=== PATIENT | female | born 1930 | race Caucasian/White ===

== ENCOUNTER 2017-01-13 13:44 | Emergency (ER) | payer MEDICARE ==
[~2017-01-13] VITALS: Ht 162.6 cm; Wt 67.8 kg
[~2017-01-13 13:44] MED LIST: HYDR200T4 PO; METO-277 PO; TRAMADOL PO
[2017-01-13 13:48] VITALS: Ht 162.6 cm; Wt 67.8 kg
--- OUTSIDE RECORDS SUMMARY | 2017-01-13 13:48 | XMS REPORT | Continuity of Care Document ---
Author Author [facility] Organization [facility] Address Unknown Phone Unavailable Support Name Relationship Address Phone Josi KAUR MD Caregiver [address] [place] [address] Unavailable YAYA DEAN MD Caregiver [address] [place] [address] Unavailable MANFRED CARTAGENA Next Of Kin [address] [place], [place] [id number] Insurance Providers Guarantor Whitney Cartagena Address [address] [place] [address] Email DENIED/NO TO PORT Payer Medicare Policy Number [id number] Subscriber's Name Whitney Cartagena Relationship 18 Self Payer [facility] Policy Number [id number] Subscriber's Name Whitney Cartagena Relationship 18 Self Group Number [id number] Directives Directive Response Recorded Date/Time Advanced Directives Type Unable to Obtain 09/22/16 8:52am Chief Complaint and Reason for Visit Chief Complaint Fall Reason for Visit Lumbar contusion Fall Problems Active Problems Medical Problem Onset Date Status RLL pneumonia Unknown Acute Past Problems Medical Problem Onset Date Fall Unknown Lumbar contusion Unknown Medications Current Home Medications Medication Dose Units Route Directions Days Qty Instructions Start Date Hydroxychloroquine Sulfate 200 Mg Tablet 200 Mg Oral Twice A Day as needed for Prn Orders 09/22/16 Metoprolol Succinate 50 Mg Tab.er.24h 50 Mg Oral Daily 09/22/16 Tramadol Susp 5 Mg Oral As Needed 09/22/16 Social History Social History Problem Response Recorded Date/Time Onset Date Status Hx Substance Use No 09/22/2016 8:52am Not Applicable Not Applicable Hx Alcohol Use Y DAILY 09/22/2016 8:52am Not Applicable Not Applicable Query Response Start Date Stop Date Smoking Status Unknown if ever smoked Hospital Discharge Instructions No hospital discharge instructions. Plan of Care Discharge Date 09/22/16 1:03pm Disposition 01 DISCHARGED HOME, SELF-CARE Condition at Discharge Improved Instructions/Education Provided How to Prevent Falls Prescriptions See Medication Section Referrals Josi KAUR MD Address: [place] [address] Care Plan and Goals Physician Care Plan Problem: Lumbar contusion from fall Goal: Follow up with primary care provider Instructions: Take medications and follow care plan as discussed/written Functional Status No functional status results. Allergies, Adverse Reactions, Alerts No known allergies. Immunizations Query Response on File Recorded Date/Time Hx Influenza Vaccination Y 201304/26/15 10:30pm Hx Pneumococcal Vaccination No 04/26/15 10:30pm Hx Influenza Vaccination Y 201304/26/15 10:30pm Vital Signs Acute Vital Signs Vital Response Date/Time Temperature (Fahrenheit) 96.7 deg F (96.8 - 99.1) 09/22/2016 8:52am Temperature (Calculated Celsius) 35.09107 degrees C (36.0 - 37.3) 09/22/2016 8:52am Pulse Rate (adult) 112 bpm (60 - 100) 09/22/2016 1:00pm Respiratory Rate 16 breaths/min (10 - 20) 09/22/2016 1:00pm O2 Sat by Pulse Oximetry 97 % (90 - 100) 09/22/2016 1:00pm Blood Pressure 124/88 mm Hg 09/22/2016 1:00pm Height (Feet) 5 feet 09/22/2016 8:52am Height (Inches) 3.00 inches 09/22/2016 8:52am Weight (Kilograms) 65.100 kg 09/22/2016 8:52am Body Mass Index (BMI) 25.0 09/22/2016 8:52am Results Laboratory Results Test Name Result Units Flags Reference Collection Date/Time Result Date/ Time Comments White Blood Count 7.8 T/MM3 4.5-11.0 09/22/2016 9:20am 09/22/2016 9: 26am Red Blood Count 4.41 M/MM3 4.00-5.20 09/22/2016 9:20am 09/22/2016 9: 26am Hemoglobin 13.9 GM/DL 12-16 09/22/2016 9:20am 09/22/2016 9:26am Hematocrit 42.9 % 36-46 09/22/2016 9:20am 09/22/2016 9:26am Mean Corpuscular Volume 97.3 UM3 80-100 09/22/2016 9:2009/22/2016 9: 26am Mean Corpuscular Hemoglobin 31.5 UUG 26-34 09/22/2016 9:202015 9:26am Mean Corpuscular Hemoglobin Concent 32.4 GM/DL 31-37 09/22/2016 9:2009/22/2016 9:26am RDW Standard Deviation 48.7 FL 36.9-50.2 09/22/2016 9:2009/22/2016 9 :26am Platelet Count 269 T/MM3 130-400 09/22/2016 9:2009/22/2016 9:26am Mean Platelet Volume 11.3 UM3 9.4-12.4 09/22/2016 9:am 09/22/2016 9: 26am Neutrophils (%) (Auto) 73.9 % H 33-66 09/22/2016 9:09/22/2016 9: 26am Lymphocytes (%) (Auto) 18.3 % L 23-45 09/22/2016 9:09/22/2016 9: 26am Monocytes (%) (Auto) 7.2 % 0-9.0 09/22/2016 9:2009/22/2016 9:26am Eosinophils (%) (Auto) 0.0 % 0-4 09/22/2016 9:09/22/2016 9:26am Basophils (%) (Auto) 0.3 % 0-2 09/22/2016 9:2009/22/2016 9:26am Immature Granulocyte % (Auto) 0.3 % 0.0-0.5 09/22/2016 9:202015 9:26am Absolute Neutrophils (auto) 5.7 T/MM3 1.8-7.7 09/22/2016 9:20am 2015 9:26am Absolute Lymphocytes (auto) 1.4 T/MM3 1-4.8 09/22/2016 9:20am 2015 9:26am Absolute Monocytes (auto) 0.6 T/MM3 0-0.8 09/22/2016 9:20am 09/22/2016 9:26am Absolute Eosinophils (auto) 0.0 T/MM3 0-0.5 09/22/2016 9:20am 2015 9:26am Absolute Basophils (auto) 0.0 T/MM3 0-0.2 09/22/2016 9:20am 09/22/2016 9:26am Absolute Immature Granulocyte (auto 0.02 T/MM3 0.00-0.03 09/22/2016 9: 20am 09/22/2016 9:26am Icterus Index < 2 0-7 09/22/2016 10:30am 09/22/2016 10:44am Chemistry Specimen Hemolysis 98 H 0-25 09/22/2016 10:30am 09/22/2016 10:44am 71-285: Specimen Exhibited Moderate Hemolysis - can falsely elevate K (Potassium), Troponin I, CA 19-9, PTH, CSF Glucose, Urine Protein, and can falsely decrease Phenytoin. Turbidity 48 H 0-20 09/22/2016 10:30am 09/22/2016 10:44am 0-21: Turbidity not present. 22-999: Turbidity present - Gross turbidity can falsely decrease Lipase and Triglycerides. Sodium Level 142 MEQ/L 134-144 09/22/2016 10:30am 09/22/2016 12:02pm Potassium Level 4.7 MEQ/L 3.6-5 09/22/2016 10:30am 09/22/2016 12:02pm Chloride Level 118 MEQ/L H 98-107 09/22/2016 10:30am 09/22/2016 11:25am Carbon Dioxide Level 14 MEQ/L L 22-30 09/22/2016 10:30am 09/22/2016 11: 25am Anion Gap 10 MEQ/L 5-15 09/22/2016 10:30am 09/22/2016 12:02pm Blood Urea Nitrogen 15.0 MG/DL 7-17 09/22/2016 10:30am 09/22/2016 11: 25am Creatinine 0.6 MG/DL L 0.7-1.2 09/22/2016 10:30am 09/22/2016 11:25am BUN/Creatinine Ratio 25 RATIO 6-26 09/22/2016 10:30am 09/22/2016 11: 25am Glomerular Filtration Rate Calc 95 09/22/2016 10:30am 09/22/2016 11 :25am Glucose Level 102 MG/DL 65-110 09/22/2016 10:30am 09/22/2016 11:25am Calculated Osmolality 274 MOSM/KG 261-280 09/22/2016 10:30am 2015 12:02pm Calcium Level 9.4 MG/DL 8.4-10.2 09/22/2016 10:30am 09/22/2016 11:25am Total Bilirubin 0.80 MG/DL 0.20-1.30 09/22/2016 10:30am 09/22/2016 11: 25am Alkaline Phosphatase 53 U/L 38-126 09/22/2016 10:30am 09/22/2016 11: 25am Total Protein 6.9 G/DL 6.3-8.2 09/22/2016 10:30am 09/22/2016 11:25am Albumin 3.9 G/DL 3.5-5.0 09/22/2016 10:30am 09/22/2016 11:25am Globulin 3.0 G/DL 2.4-3.6 09/22/2016 10:30am 09/22/2016 11:25am Albumin/Globulin Ratio 1.3 RATIO 1.1-2.2 09/22/2016 10:30am 09/22/2016 11:25am Aspartate Amino Transf (AST/SGOT) 46 U/L H 14-36 09/22/2016 10:30am 10/2015 11:25am Alanine Aminotransferase (ALT/SGPT) 30 U/L 9-52 09/22/2016 10:30am 10/2015 12:02pm Troponin I 0.059 ng/ml 0-0.12 09/22/2016 10:30am 09/22/2016 11:02am Troponin values with a difference of 55% increase from orginal troponin value represent a true biological DELTA value. (%increase Calc=Orginal Troponin value, divided by subsequent Troponin value, multiplied by 100) C-Reactive Protein < 5.0 MG/L 0-9 09/22/2016 10:30am 09/22/2016 10: 53am Reason Tests Not Done HEMOLYZED SPECIMEN 09/22/2016 9:28am 2015 9:29am Tests Not Done CMP TROP CRP 09/22/2016 9:28am 09/22/2016 9:29am Specimen Comment (Misc) LAB TO RECOLLECT 09/22/2016 9:28am 2015 9:29am Urine Collection Type VOIDED-NOT CC-MIDSTR 09/22/2016 10:45am 09/22 10:54am Urine Color YELLOW YELLOW 09/22/2016 10:45am 09/22/2016 10:54am Urine Turbidity CLEAR CLEAR 09/22/2016 10:45am 09/22/2016 10:54am Urine Specific [place] 1.020 1.015-1.025 09/22/2016 10:45am 2015 10:54am Urine pH 6.0 5.0-8.0 09/22/2016 10:45am 09/22/2016 10:54am Urine Leukocyte Esterase NEGATIVE NEGATIVE 09/22/2016 10:45am 2015 10:54am Urine Nitrite NEGATIVE NEGATIVE 09/22/2016 10:45am 09/22/2016 10: 54am Urine Protein NEGATIVE NEGATIVE 09/22/2016 10:45am 09/22/2016 10: 54am Urine Glucose (UA) NEGATIVE NEGATIVE 09/22/2016 10:45am 09/22/2016 10 :54am Urine Ketones 1+ A NEGATIVE 09/22/2016 10:45am 09/22/2016 10:54am Urine Urobilinogen 0.2 EU/DL NORMAL 09/22/2016 10:45am 09/22/2016 10: 54am Urine Bilirubin NEGATIVE NEGATIVE 09/22/2016 10:45am 09/22/2016 10: 54am Urine Blood TRACE-INTACT A NEGATIVE 09/22/2016 10:45am 09/22/2016 10: 54am Urinalysis Comment MICROSCOPIC NOT IND. 09/22/2016 10:45am 2015 10:54am Name: WHITNEY CARTAGENA Unit #: [id number] : [id number] Sex: F Admit Date: Loc / Svc: ED Discharge Date: DIAGNOSTIC IMAGING REPORT Report #: [id number] [facility] [place] [address] EXAM: CHEST 1 VIEW LOCATION OF DICTATION: [place] HISTORY: ITS.REASON: weakness COMPARISON: Compared to April 26, 2015. FINDINGS: The heart size is upper limits normal. The mediastinal configuration is within normal limits. There are no developing consolidating opacities or pleural effusions. Mild bibasilar atelectasis or scarring suggested. There is no pneumothorax. The osseous structures are within normal limits for the patient's age. IMPRESSION: Upper limits normal sized heart without CHF or pneumonia. Mild bibasilar atelectasis or scarring suggested. . Procedures No known history of procedures. Encounters Encounter Location Arrival/Admit Date Discharge/Depart Date Attending Provider Departed Emergency Room [facility] 09/22/16 8:49am 09/22/16 1: 03pm YAYA DEAN MD Recent Diagnosis
--- OUTSIDE RECORDS SUMMARY | 2017-01-13 13:48 | XMS REPORT | Continuity of Care Document ---
Author Author [facility] [employer] Organization [facility] Address Unknown Phone Unavailable Allergies Medications Problems Date Dx Coded Attending Type Code Diagnosis Diagnosed By 11/03/2015 ALEISHA KAUR MD R10.31 Right lower quadrant pain Procedures Code [place] [address] COMPREHEN METABOLIC PANEL ALEISHA KAUR MD 11/03/2015 64757 COMPLETE CBC, AUTOMATED ALEISHA KAUR MD 11/03/2015 Results Test Result Range CBC - 11/04/15 11:32 Eos # 0.06 x10^3 0-0.5 Eos % 0.9 % 0-4 HCT 41.8 % 37.0-47.0 HGB 13.6 G/DL 12.0-16.0 Lymph # 1.70 x10^3 1.0-4.0 Lymph % 25.7 % 20-50 MCH 32.1 PG 27.0-31.0 MCHC 32.5 G/DL 32.0-36.0 MCV 98.6 FL 81-99 [place] # 0.69 x10^3 0.0-0.8 [place] % 10.4 % 1.0-9.0 MPV 12.1 FL 6.0-10.0 Platelet 243 x10^3 150-400 RBC 4.24 x10^3 4.20-5.40 RDW 14.1 % 12-15 WBC 6.61 x10^3 4.8-10.8 Baso # 0.02 x10^3 0-0.2 Baso % 0.3 % 0-2 Neut % 62.7 % 50-70 Neut # 4.14 x10^3 3.0-7.0 Comprehensive Metabolic Panel - 11/04/15 15:32 Sodium 142 MMOLL 134-145 Potassium 5.1 MMOLL 3.6-5.0 Chloride 107 MMOLL 98-107 CO2 21 MMOLL 22-30 Glucose 105 MG/DL 75-110 BUN 28 MG/DL 9-20 Creatinine 1.1 MG/DL 0.8-1.7 Calcium 9.9 MG/DL 8.4-10.2 T Bili .5 MG/DL 0.2-1.3 T. Protein 6.9 G/DL 6.3-8.2 A/G Ratio 1.3 RATIO Albumin 3.9 G/DL 3.5-5.0 Alk Phos 55 U/L 38-126 ALT 39 U/L 11-66 AST 44 U/L 14-36 Encounters ACCT No. Visit Date/Time Discharge Status Pt. Type Provider Facility Loc./Unit Complaint [id number] 11/04/2015 09:42:00 11/04/2015 09:42:00 DIS Outpatient FAST , [facility]
[2017-01-13] MEDS ORDERED: ALEN70TA48 PO (13:54)
--- NOTE | 2017-01-13 13:54 | NUR ---
CT PT TO CT PER COT, RN WITH PT FOR CT, HOLDS HEAD WITH ALL MOVEMENTS TO AND BACK FROM CT BED. NO CHANGES IN PT STATUS.
--- OUTSIDE RECORDS SUMMARY | 2017-01-13 13:55 | XMS REPORT | Continuity of Care Document ---
Author Author [facility] Organization [facility] Address Unknown Phone Unavailable Allergies Medications Problems Date Dx Coded Attending Type Code Diagnosis Diagnosed By 11/03/2015 ALEISHA KAUR MD R10.31 Right lower quadrant pain Procedures Code Description [place] [address] COMPREHEN METABOLIC PANEL ALEISHA KAUR MD 11/03/2015 [id number] COMPLETE CBC, AUTOMATED ALEISHA KAUR MD 11/03/2015 Results Test Result Range CBC - 11/04/15 11:32 Eos # 0.06 x10^3 0-0.5 Eos % 0.9 % 0-4 HCT 41.8 % 37.0-47.0 HGB 13.6 G/DL 12.0-16.0 Lymph # 1.70 x10^3 1.0-4.0 Lymph % 25.7 % 20-50 MCH 32.1 PG 27.0-31.0 MCHC 32.5 G/DL 32.0-36.0 MCV 98.6 FL 81-99 [place] # 0.69 x10^3 0.0-0.8 [place] % 10.4 % 1.0-9.0 MPV 12.1 FL [...] Status Pt. Type Provider Facility Loc./Unit Complaint [id number] 11/04/2015 09:42:00 11/04/2015 09:42:00 DIS Outpatient FAST , [facility]
[2017-01-13] MEDS ORDERED: TRAMADOL PO (13:58)
[2017-01-13] MEDS ORDERED: ASPI81TA2 PO (13:58)
[2017-01-13] MEDS ORDERED: ACET-2890 PO (14:00)
[2017-01-13] MEDS ORDERED: SENN-156 PO (14:01)
--- NOTE | 2017-01-13 14:07 | NUR ---
CT PT RETURNED FROM CT ALONG WITH RN.
--- NOTE | 2017-01-13 14:14 | DI ---
Indication: ITS.REASON: head injury PROCEDURE: CT HEAD W/O CONTRAST: Encounter: Initial Comparison: September 22, 2016 Technique: Axial CT images through the head were performed without contrast. Iterative Reconstruction dose reducing technique was utilized. FINDINGS: Moderate atrophy. The ventricles are unchanged. There is no evidence of acute intracranial hemorrhage, midline displacement, or mass effect. There are scattered areas of low attenuation in the white matter which most likely represent changes of chronic microvascular ischemia. The CT attenuation of the brain parenchyma is otherwise normal within the cerebellum, brain stem, and cerebral hemispheres. The tympanic cavities and mastoid air cells are free of appreciable disease. There are no definite fractures of the skull base, calvarium, or visualized portion of the midface. Right posterior parietal scalp swelling. IMPRESSION: No CT evidence of acute traumatic intracranial injury. .
--- NOTE | 2017-01-13 14:16 | DI ---
Indication: ITS.REASON: neck pain post fall PROCEDURE: CT CERVICAL SPINE W/O CONTRAST: Encounter: Initial Comparison: CT cervical spine dated September 22, 2016 Technique: Axial CT images through the cervical spine were performed without contrast. Coronal and sagittal reformatted images were also obtained. Automated Exposure Control and Iterative Reconstruction dose reducing techniques were utilized. FINDINGS: The alignment of the cervical spine is unchanged. Multilevel degenerative changes are present. There is no evidence of acute fracture or subluxation of the cervical spine. The atlantoaxial articulation, dens, and upper cervical spine demonstrate no subluxation. The paraspinal soft tissues and spinal canal appear unremarkable. IMPRESSION: No acute traumatic abnormality of the cervical spine. .
--- NOTE | 2017-01-13 14:41 | NUR ---
FAMILY PT'S AND DAUGHTER IN ROOM WITH PT. FAMILY UPDATED ON PT'S STATUS AND QUESTIONS ANSWERED.
[2017-01-13] MEDS ORDERED: LIDOCAINE 1% (10mg/ml) 30ml SDV INFIL ONE (15:00)
--- NOTE | 2017-01-13 15:03 | NUR ---
WOUND CARE/DOMENICO WOUND CLEANED WITH CHLORHEXIDINE AND STERILE WATER. YANELY NAVA DOMENICO SCALP LACERATION.
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
--- NOTE | 2017-01-13 15:30 | NUR ---
REPORT REPORT CALLED TO ZAFAR HENSLEY AT [facility].
[2017-01-13 15:42] VITALS: BP 189/93; PULSE 94; RESP 18; TEMP 98.1; O2SAT 98
== END 2017-01-13 15:42 | disposition home or self-care (01) ==
LOC: ED 13:44
DX: S01.01XA Laceration without foreign body of scalp, initial encounter (principal); M54.2 Cervicalgia; W18.39XA Other fall on same level, initial encounter; Y93.89 Activity, other specified; Y92.89 Other specified places as the place of occurrence of the external cause; Y99.8 Other external cause status

== ENCOUNTER 2017-03-06 16:10 | Emergency (ER) | payer MEDICARE ==
[~2017-03-06] VITALS: Ht 157.5 cm; Wt 58.0 kg
[~2017-03-06 16:10] MED LIST changes: +ACET-2890 PO; +ALEN70TA48 PO; +ASPI81TA2 PO; +SENN-156 PO
--- NOTE | 2017-03-06 16:13 | NUR ---
PROVIDER DR SILVA IN ROOM W/ PT.
--- OUTSIDE RECORDS SUMMARY | 2017-03-06 16:14 | XMS REPORT | Continuity of Care Document ---
Author Author [facility] Organization [facility] Address Unknown Phone Unavailable Support Name Relationship Address Phone Josi KAUR MD Caregiver [address] [place] [address] Unavailable ASHIA OSCAR DO Caregiver [address] [place] [address] Unavailable MANFERD CARTAGENA Next Of Kin [address] [place], [place] [id number] Insurance Providers Guarantor Whitney Cartagena Address [address] [place] [address] Email DENIED/NO TO PORT Payer Medicare Policy Number [id number] Subscriber's Name Whitney Cartagena Relationship 18 Self Payer [facility] Policy Number [id number] Subscriber's Name Whitney Cartagena Relationship 18 Self Group Number [id number] Chief Complaint and Reason for Visit Chief Complaint Fall Reason for Visit Scalp laceration Head injury Problems Active Problems Medical Problem Onset Date Status RLL pneumonia Unknown Acute Past Problems Medical Problem Onset Date Fall Unknown Head injury Unknown Lumbar contusion Unknown Scalp laceration Unknown Medications Current Home Medications Medication Dose Units Route Directions Days Qty Instructions Start Date Acetaminophen 650 Mg Tablet.er 650 Mg Oral Twice A Day 01/13/17 Alendronate Sodium 70 Mg Tablet 70 Mg Oral Every 7 Days PT TAKES ON Monday01/13/17 Aspirin 81 Mg Tab.chew 81 Mg Oral Daily 01/13/17 Hydroxychloroquine Sulfate 200 Mg Tablet 200 Mg Oral Daily Metoprolol Succinate 50 Mg Tab.er.24h 50 Mg Oral Daily 09/22/16 Sennosides (Senna) 8.6 Mg Tablet 8.6 Mg Oral Daily 01/13/17 Sennosides (Senna) 8.6 Mg Tablet 2-4 Tab Oral Daily as needed for Constipation 01/13/17 Tramadol Susp. 5 Ml Oral Am 01/13/17 Social History Social History Problem Response Recorded Date/Time Onset Date Status Chewing Tobacco Status No 01/13/2017 2:09pm Not Applicable Not Applicable Hx Substance Use No 01/13/2017 2:09pm Not Applicable Not Applicable Hx Alcohol Use No 01/13/2017 2:09pm Not Applicable Not Applicable Query Response Start Date Stop Date Smoking Status Unknown if ever smoked Hospital Discharge Instructions No hospital discharge instructions. Plan of Care Discharge Date 01/13/17 3:42pm Disposition 01 DISCHARGED HOME, SELF-CARE Condition at Discharge Stable Instructions/Education Provided Laceration (ED) Head Injury (ED) Prescriptions See Medication Section Referrals Josi KAUR MD Address: [place] [address] Additional Instructions/Education Monitor for any severe head injury, repeated vomiting, or decreased level of consciousness. If any of these then return to ER. Have carlie removed in 7 days with primary care providers office. If any other issues/concerns then return to ER. Care Plan and Goals Physician Care Plan Problem:Fall, head injury, scalp laceration Goal: Follow up with primary care provider Instructions: Take medications and follow care plan as discussed/written Functional Status No functional status results. 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 12/06/16 Immunizations Query Response on File Recorded Date/Time Hx Influenza Vaccination Y 201304/26/15 10:30pm Hx Pneumococcal Vaccination No 04/26/15 10:30pm Hx Influenza Vaccination Y 201304/26/15 10:30pm Influenza Vaccine Hx UNKNOWN 01/13/17 2:09pm Vital Signs Acute Vital Signs Vital Response Date/Time Temperature (Fahrenheit) 98.1 deg F (96.8 - 99.1) 01/13/2017 3:42pm Temperature (Calculated Celsius) 36.70848 degrees C (36.0 - 37.3) 01/13/2017 3:42pm Pulse Rate (adult) 94 bpm (60 - 100) 01/13/2017 3:42pm Respiratory Rate 18 breaths/min (10 - 20) 01/13/2017 3:42pm O2 Sat by Pulse Oximetry 98 % (90 - 100) 01/13/2017 3:42pm Blood Pressure 189/93 mm Hg 01/13/2017 3:42pm Height (Feet) 5 feet 01/13/2017 1:48pm Height (Inches) 4.00 inches 01/13/2017 1:48pm Weight (Kilograms) 67.800 kg 01/13/2017 1:48pm Body Mass Index (BMI) 25.0 01/13/2017 1:48pm Results Name: WHITNEY CARTAGENA Unit #: [id number] : 1930 Sex: F Admit Date: Loc / Svc: ED Discharge Date: DIAGNOSTIC IMAGING REPORT Report #: [id number] [facility] LEDY Mccormack Indication: ITS.REASON: neck pain post fall PROCEDURE: CT CERVICAL SPINE W/O CONTRAST: Encounter: Initial Comparison: CT cervical spine dated September 22, 2016 Technique: Axial CT images through the cervical spine were performed without contrast. Coronal and sagittal reformatted images were also obtained. Automated Exposure Control and Iterative Reconstruction dose reducing techniques were utilized. FINDINGS: The alignment of the cervical spine is unchanged. Multilevel degenerative changes are present. There is no evidence of acute fracture or subluxation of the cervical spine. The atlantoaxial articulation, dens, and upper cervical spine demonstrate no subluxation. The paraspinal soft tissues and spinal canal appear unremarkable. IMPRESSION: No acute traumatic abnormality of the cervical spine. . Procedures No known history of procedures. Encounters Encounter Location Arrival/Admit Date Discharge/Depart Date Attending Provider Departed Emergency Room [facility] 01/13/17 1:44pm 01/13/17 3: 42pm ASHIA OSCAR DO Discharged Recurring Private Duty 04/22/15 12:00am 11/23/16 Josi KAUR MD Recent Diagnosis
--- OUTSIDE RECORDS SUMMARY | 2017-03-06 16:14 | XMS REPORT | Continuity of Care Document ---
Author Author [facility] [employer] Organization [facility] Address Unknown Phone Unavailable Allergies Medications Problems Date Dx Coded Attending Type Code Diagnosis Diagnosed By 11/03/2015 ALEISHA KAUR MD R10.31 Right lower quadrant pain Procedures Code [place] [id number] COMPREHEN METABOLIC PANEL ALEISHA KAUR MD 11/03/2015 [id number] COMPLETE CBC, AUTOMATED ALEISHA KAUR MD 11/03/2015 Results Test Result Range CBC - 11/04/15 11:32 Eos # 0.06 x10^3 0-0.5 Eos % 0.9 % 0-4 HCT 41.8 % 37.0-47.0 HGB 13.6 G/DL 12.0-16.0 Lymph # 1.70 x10^3 1.0-4.0 Lymph % 25.7 % 20-50 MCH 32.1 PG 27.0-31.0 MCHC 32.5 G/DL 32.0-36.0 MCV 98.6 FL 81-99 [place] # 0.69 x10^3 0.0-0.8 [place] % 10.4 % 1.0-9.0 MPV 12.1 FL [...] Status Pt. Type Provider Facility Loc./Unit Complaint [id number] 11/04/2015 09:42:00 11/04/2015 09:42:00 DIS Outpatient FAST , [facility] FA[facility]
[2017-03-06] MEDS ORDERED: NORMAL SALINE 1,000 ML IV ONE (16:15)
--- NOTE | 2017-03-06 16:15 | ERPDOC ---
Departure Disposition Decision Date: March 06, 2017 Disposition Decision Time: 18:52 Disposition: 01 DISCHARGED HOME, SELF-CARE Impression Impression Impression: Primary Impression: Fall on same level Encounter type: initial encounter Qualified Codes: W18.30XA - Fall on same level, unspecified, initial encounter Additional Impressions: Scalp abrasion Encounter type: initial encounter Qualified Codes: S00.01XA - Abrasion of scalp, initial encounter Scalp contusion Contusion of right hip Encounter type: initial encounter Qualified Codes: S70.01XA - Contusion of right hip, initial encounter Severity: Moderate Condition: Improved Seen By: Physician only Referrals: Josi KAUR MD (Family) Follow-up for further evaluation Patient Instructions: Fall Prevention for Older Adults (ED) Problems/Meds/Labs Reviewed?: Yes Medications reviewed and manag: Yes Follow up care ordered?: Yes Mental Status: Alert, Oriented HPI - Fall/Injury General Stated Complaint: FALL Time Seen by Provider: 16:15 Source: patient, family, EMS, EMS notes reviewed, old records Exam Limitations: no limitations HPI - Fall/Injury Initial Comments Patient is an 86-year-old female significant dementia. Patient brought to the ER for evaluation after a fall. Patient fell backwards on cement striking her head on the ground. Patient has breathing abrasion/hematoma to the back of the head, was also complaining of some mild neck pain and some right hip pain patient was placed in C-spine precautions brought to the ER for evaluation. Patient was given 50 g of fentanyl on route with no relief of pain. Occurred At: home Onset: Rapid Duration: 1 hr Injuries/Pain Location: head, neck, lower extremity Context: lost balance, tripped Loss of Consciousness: no loss of consciousness Allergies: Coded Allergies: No Known Allergies (Unverified , 01/13/17) Uncoded Allergies: hazelnut (Allergy, Unknown, Severe allergic reaction, 12/06/16) hazelnut Past History Past Medical History Metabolic: hypertension Psychological: dementia, depression Surgical History Denies Surgeries Family History Family PMH: FOUND: hypertension Vaccines Hx Influenza Vaccination: Yes (2013) Hx Pneumococcal Vaccination: No Social History Smoking Status: Never smoker Substance Use Type: does not use Sexuality: male partner Review of Systems Unable to Obtain ROS Due to: dementia (review of systems is suspect patient has significant dementia) Constitutional Constitutional: DENIES: appetite decrease, chills, dizziness, fever, weakness Eyes Vision: DENIES: blurring, double vision ENMT Sinuses: DENIES: congestion Cardiovascular Cardiac: DENIES: chest pain GI Upper Abdomen: DENIES: pain Lower Abdomen: DENIES: pain Musculoskeletal General: DENIES: cramps, pain, weakness Integumentary Skin: DENIES: color change, itching, rash Neurological General: headache Endocrine Endocrine: DENIES: heat/cold intolerance Hematologic/Lymphatic Hematologic/Lymphatic: DENIES: anemia Physical Exam General General Nourishment: well nourished, well developed General Body Habitus: well groomed Vitals and Pain First Documented Vital Signs Date Time Temp Pulse Resp B/P Pulse Ox O2 Delivery O2 Flow Rate FiO2 03/06/17 16:46 98.1 91 20 186/93 98 Room Air Weight: Kilograms: Height (feet): 5 Height (inches): 4.00 Triage Pain Scale: RN VS reviewed by Provider: Yes Eyes (brief) Eyes Brief: found: EOMI, PERRL, trauma (patient has contusion to posterior scalp with mild abrasion or laceration) ENMT (brief) ENMT Brief: FOUND: TM clear, TM good light reflex Neck (brief) Neck: FOUND: tenderness (patient does have some tenderness approximately C4), NOT FOUND: adenopathy, spasm Respiratory (brief) Respiratory: FOUND: clear all roper, equal bilaterally, NOT FOUND: rales, wheezes Cardiovascular (brief) Cardiac: FOUND: regular rate, regular rhythm Capillary Refill: <2 sec Abdomen (brief) Abdominal Brief: FOUND: bowel normo active x4, soft Lymphatic (brief) Lymphatic Brief: NOT FOUND: adenopathy Musculoskeletal (brief) Musculoskeletal Brief: FOUND: spasm, tenderness Integumentary (brief) Integumentary Brief: FOUND: dry, pink, warm, NOT FOUND: rash Neurologic (brief) Neurological Brief: FOUND: CN w/o gross def to obs, motor-no gross deficits, sensory-no gross deficits Psychiatric (brief) Psychiatric Brief: FOUND: alert, oriented Differential Diagnoses Considering: Abrasion, Concussion, Contusion, Epidural Hematoma, Dislocation, Fracture, Subdural Hematoma Progress Results/Orders Orders Procedure Category Date Status Time Ct Head W/O Contrast CT 03/06/17 Resulted 16:15 Ct Cervical Spine W/O CT 03/06/17 Resulted Contrast 16:15 Lumbar Spine 2-3 Views RAD 03/06/17 Resulted 16:15 Pelvis W/2 View Rt Hip RAD 03/06/17 Resulted 16:15 Iv Lock (Ed Only) EDM 03/06/17 Transmitted 16:15 Normal Saline (Normal PHA 03/06/17 Complete Saline Iv) 16:15 Medications Current ED Medications Sodium Chloride (Normal Saline IV) 1,000 ml @ 100 mls/hr Q10H ONCE IV Last administered on 03/06/17t 16:44; Start 03/06/17 at 16:15; Stop 03/06/17 at 20:43 ; Status DC Progress Progress Patient CT scan C-spine, head negative, patient films of lumbar spine and right hip pelvis are negative as well. Patient was able ambulate in the emergency department without assistance, appears to be back to baseline. Patient will be discharged home in the care of her . Xray Xray #1: Xray: L-Spine Interpretation: Normal, Interpreted by Me Xray #2: Xray: Hip R Interpretation: Normal, Interpreted by Me CT CT #1: CT: Head no contrast Interpretation: Normal, Faxed Report CT #2: CT: C-Spine no contrast Interpretation: Normal, Faxed Report AARTI SILVA MD March 06, 2017 16:15
--- OUTSIDE RECORDS SUMMARY | 2017-03-06 16:21 | XMS REPORT | Continuity of Care Document ---
Author Author [facility] [email or web address] Organization [facility] Address Unknown Phone Unavailable Allergies Medications Problems Date Dx Coded Attending Type Code Diagnosis Diagnosed By 11/03/2015 ALEISHA KAUR MD R10.31 Right lower quadrant pain Procedures Code [place] [address] COMPREHEN METABOLIC PANEL ALEISHA KAUR MD 11/03/2015 [id number] COMPLETE CBC, AUTOMATED ALEISHA KAUR MD 11/03/2015 Results Test Result Range CBC - 11/04/15 11:32 Eos # 0.06 x10^3 0-0.5 Eos % 0.9 % 0-4 HCT 41.8 % 37.0-47.0 HGB 13.6 G/DL 12.0-16.0 Lymph # 1.70 x10^3 1.0-4.0 Lymph % 25.7 % 20-50 MCH 32.1 PG 27.0-31.0 MCHC 32.5 G/DL 32.0-36.0 MCV 98.6 FL 81-99 [place] # 0.69 x10^3 0.0-0.8 [place] % 10.4 % 1.0-9.0 MPV 12.1 FL [...] Status Pt. Type Provider Facility Loc./Unit Complaint [id number] 11/04/2015 09:42:00 11/04/2015 09:42:00 DIS Outpatient FAST , [facility]
--- NOTE | 2017-03-06 16:22 | NUR ---
CT SCAN PT GONE TO CT SCAN VIA CART.
--- NOTE | 2017-03-06 16:34 | NUR ---
CT SCAN PT BACK FROM CT SCAN VIA CART.
[2017-03-06 16:46] VITALS: Ht 157.5 cm; Wt 58.0 kg
--- NOTE | 2017-03-06 16:49 | DI ---
Indication: ITS.REASON: fall, head injury, laceration PROCEDURE: CT HEAD W/O CONTRAST: Encounter: Initial Comparison: January 13, 2017 Technique: Axial CT images through the head were performed without contrast. Iterative Reconstruction dose reducing technique was utilized. FINDINGS: Moderate generalized atrophy. Stable ventricular enlargement. There is no evidence of acute intracranial hemorrhage, midline displacement, or mass effect. There are numerous areas of low attenuation in the white matter which most likely represent changes of chronic microvascular ischemia. The CT attenuation of the brain parenchyma is otherwise normal within the cerebellum, brain stem, and cerebral hemispheres. The tympanic cavities and mastoid air cells are free of appreciable disease. There are no definite fractures of the skull base, calvarium, or visualized portion of the midface. Posterior scalp swelling. IMPRESSION: No CT evidence of acute traumatic intracranial injury. .
--- NOTE | 2017-03-06 16:51 | DI ---
Indication: ITS.REASON: fall, head injury neck pain PROCEDURE: CT CERVICAL SPINE W/O CONTRAST: Encounter: Initial Comparison: January 13, 2017 Technique: Axial CT images through the cervical spine were performed without contrast. Coronal and sagittal reformatted images were also obtained. Automated Exposure Control and Iterative Reconstruction dose reducing techniques were utilized. FINDINGS: The alignment of the cervical spine is unchanged. Multilevel degenerative changes are present. There is no evidence of acute fracture or subluxation of the cervical spine. The atlantoaxial articulation, dens, and upper cervical spine demonstrate no subluxation. The paraspinal soft tissues and spinal canal appear unremarkable. IMPRESSION: No acute traumatic abnormality of the cervical spine. .
--- NOTE | 2017-03-06 17:00 | NUR ---
C-COLLAR REMOVED AND C-SPINE CLEARED.
--- NOTE | 2017-03-06 17:12 | NUR ---
XRAY PT GONE TO XRAY VIA CART.
--- NOTE | 2017-03-06 18:05 | NUR ---
XRAY PT BACK FROM XRAY VIA CART.
--- NOTE | 2017-03-06 18:10 | NUR ---
REPORT REPORT AND HANDED OFF PT TO LASHAY HENSLEY.
--- NOTE | 2017-03-06 18:45 | NUR ---
STATUS PT IS ASSISTED WITH WALKING IN THE ROOM. REPORTS THIS IS HER NORMAL GAIT. PT AMBULATED BACK TO BED. CLEANED BACK OF HEAD. FOUND APPROX 2.5CM ABRASION. SITE IS CLEANED WITH NS,CHLORHEXIDINE
[2017-03-06 19:05] VITALS: BP 185/95; PULSE 88; RESP 18; TEMP 98.7; O2SAT 99
--- NOTE | 2017-03-06 19:10 | NUR ---
DEPART IS GIVEN DISMISSAL INSTRUCTIONS WITH VERBAL UNDERSTANDING. PT IS ASSISTED IN W/C. HOME HEALTH IS CALLED AND THEY WILL CALL THE BACK TO SEE IF THEY CAN ASSIST. PT IS ASSISTED TO PRIVATE VEHICLE.
--- NOTE | 2017-03-07 08:15 | DI ---
Indication: ITS.REASON: fall, low back pain PROCEDURE: LUMBAR SPINE 2-3 VIEWS: Encounter: Initial Comparison: September 22, 2016 Findings: Alignment of the lumbar spine is stable. No acute fracture or subluxation. Degenerative anterolisthesis of L4 on L5 is unchanged. Old superior endplate deformity at L3 is again noted. Significant bony demineralization limiting detection of nondisplaced fractures. Degenerative facet disease at L4-S1. Impression: No acute fracture seen. .
--- NOTE | 2017-03-07 08:23 | DI ---
Indication: ITS.REASON: fall, right hip pain PROCEDURE: PELVIS W/2 VIEW RT HIP: Encounter: Initial Comparison: None Findings: There is no acute fracture, dislocation or malalignment identified. Impression: No acute osseous abnormality. .
== END 2017-03-06 19:10 | disposition home or self-care (01) ==
LOC: ED 16:10
DX: S00.03XA Contusion of scalp, initial encounter (principal); S00.01XA Abrasion of scalp, initial encounter; M54.2 Cervicalgia; M25.551 Pain in right hip; M54.5 Low back pain; F03.90 Unspecified dementia, unspecified severity, without behavioral disturbance, psychotic disturbance, mood disturbance, and anxiety; W01.0XXA Fall on same level from slipping, tripping and stumbling without subsequent striking against object, initial encounter; Y93.9 Activity, unspecified; Y92.009 Unspecified place in unspecified non-institutional (private) residence as the place of occurrence of the external cause; Y99.8 Other external cause status
CPT/HCPCS: 70450; 72100; 72125; 73502; 96360; 99284; J7030